=== PATIENT | female | born 1990 | race African-American/Black ===

== ENCOUNTER 2019-07-14 16:55 | Emergency (ER) | payer BC ==
[2019-07-14] MEDS ORDERED: Sodium Chloride 0.9% 10 ML Syringe FLUSH PRN (18:00)
--- NOTE | 2019-07-14 18:07 | EDM.PDOC ---
ED HPI GENERAL MEDICAL PROBLEM - General Chief Complaint: General Stated Complaint: DIZZY AND NAUSEOUS Time Seen by Provider: 07/14/19 17:43 Source of Information: Reports: Patient History Limitations: Reports: No Limitations - History of Present Illness INITIAL COMMENTS - FREE TEXT/NARRATIVE: Patient is a 29-year-old female who presents with complaints of headache, dizziness, and nausea for the last 8 days. Patient describes her dizziness as the room spinning. She states it is worse if she looks to the side quickly. States the symptoms are intermittent and are currently mild. Nausea worsens when the dizziness is present. She has had an episode similar to this last year and it resolved after a couple weeks. She has not had vomiting or diarrhea. She denies any respiratory symptoms, fever, or chills. She denies any vision changes. She has not taken any OTC medications for this. She denies the possibility of being and is currently on her menses. She has not had any ear pain or pressure. Denies any chronic medical conditions. Middle Frontal Forehead Pain Score (Numeric/FACES): 1 - Related Data Allergies Allergy/AdvReac Type Severity Reaction Status Date / Time No Known Allergies Allergy Verified 07/14/19 17:09 Home Meds: Home Meds Ibuprofen 200 mg PO PRN 07/14/19 [History] Meclizine [Antivert] 25 mg PO TID PRN #15 tab 07/14/19 [Rx] Past Medical History HEENT History: Reports: None Cardiovascular History: Reports: None Respiratory History: Reports: None Gastrointestinal History: Reports: None Genitourinary History: Reports: None [employer] History: Reports: None Musculoskeletal History: Reports: None Neurological History: Reports: None Psychiatric History: Reports: None Endocrine/Metabolic History: Reports: None Hematologic History: Reports: None Immunologic History: Reports: None Oncologic (Cancer) History: Reports: None Dermatologic History: Reports: None Social & Family History - Tobacco Use Smoking Status *Q: Never Smoker - Caffeine Use Caffeine Use: Reports: Coffee - Recreational Drug Use Recreational Drug Use: No ED ROS GENERAL - Review of Systems Review Of Systems: Comprehensive ROS is negative, except as noted in HPI. ED EXAM, GENERAL - Physical Exam Exam: See Below Exam Limited By: No Limitations General Appearance: Alert, WD/WN, No Apparent Distress Eye Exam: Bilateral Eye: PERRL Ears: Normal External Exam, Normal Canal, Hearing Grossly Normal, Normal TMs, Other (slight nystagmus with left hallpike mauever. ) Head: Atraumatic, Normocephalic Respiratory/Chest: No Respiratory Distress, Lungs Clear, Normal Breath Sounds, No Accessory Muscle Use, Chest Non-Tender Cardiovascular: Normal Peripheral Pulses, Regular Rate, Rhythm, No Edema, No Gallop, No JVD, No Murmur, No Rub Neurological: Alert, Oriented, No Motor/Sensory Deficits Course - Vital Signs Last Recorded V/S: Last Vital Signs Temp 99 F 07/14/19 17:02 Pulse 68 07/14/19 17:02 Resp 18 07/14/19 17:02 BP 120/73 07/14/19 17:02 Pulse Ox 100 07/14/19 17:02 Orthostatic Blood Pressure [ 134/86 Standing] Orthostatic Blood Pressure [ 120/73 Sitting] Orthostatic Blood Pressure [ 110/76 Supine] - Orders/Labs/Meds Orders: Active Orders 24 hr Category Date Time Status Orthostatic Vital Signs [RC] ASDIRECTED Care 07/14/19 17:42 Active Peripheral IV Care [RC] . DIRECTED Care 07/14/19 18:01 Active Head wo Cont [CT] Stat Exams 07/14/19 18:00 Taken Meclizine [Antivert] Med 07/14/19 19:11 Once 25 mg PO ONETIME ONE Sodium Chloride 0.9% [Normal Saline] 1,000 ml Med 07/14/19 18:15 Active IV ASDIRECTED Sodium Chloride 0.9% [Saline Flush] Med 07/14/19 18:00 Active 10 ml FLUSH ASDIRECTED PRN Peripheral IV Insertion Adult [OM.PC] Stat Oth 07/14/19 18:00 Ordered Medication Orders Sodium Chloride (Normal Saline) 1,000 mls @ 999 mls/hr IV ASDIRECTED KATHRIN Last Admin: 07/14/19 18:12 Dose: 999 mls/hr Sodium Chloride (Saline Flush) 10 ml FLUSH ASDIRECTED PRN PRN Reason: Keep Vein Open Labs: Laboratory Tests 07/14/19 07/14/19 Range/Units 18:04 18:04 WBC 5.44 (3.98-10.04) K/mm3 RBC 4.84 (3.98-5.22) M/mm3 Hgb 14.0 (11.2-15.7) gm/dl Hct 41.3 (34.1-44.9) % MCV 85.3 (79.4-94.8) fl MCH 28.9 (25.6-32.2) pg MCHC 33.9 (32.2-35.5) g/dl RDW Std Deviation 38.9 (36.4-46.3) fL Plt Count 357 (182-369) K/mm3 MPV 9.4 (9.4-12.3) fl Neut % (Auto) 33.9 L (34.0-71.1) % Lymph % (Auto) 52.9 H (19.3-51.7) % [place] % (Auto) 9.6 (4.7-12.5) % Eos % (Auto) 2.8 (0.7-5.8) Baso % (Auto) 0.6 (0.1-1.2) % Neut # (Auto) 1.85 (1.56-6.13) K/mm3 Lymph # (Auto) 2.88 (1.18-3.74) K/mm3 [place] # (Auto) 0.52 H (0.24-0.36) K/mm3 Eos # (Auto) 0.15 (0.04-0.36) K/mm3 Baso # (Auto) 0.03 (0.01-0.08) K/mm3 Sodium 140 (136-145) mEq/L Potassium 4.1 (3.5-5.1) mEq/L Chloride 103 (98-107) mEq/L Carbon Dioxide 24 (21-32) mEq/L Anion Gap 17.1 H (5-15) BUN 7 (7-18) mg/dL Creatinine 0.7 (0.55-1.02) mg/dL Est Cr Clr Drug Dosing 85.18 mL/min Estimated GFR (MDRD) > 60 (>60) mL/min BUN/Creatinine Ratio 10.0 L (14-18) Glucose 86 (74-106) mg/dL Calcium 8.7 (8.5-10.1) mg/dL Total Bilirubin 0.2 (0.2-1.0) mg/dL AST 15 (15-37) U/L ALT 21 (14-59) U/L Alkaline Phosphatase 69 (46-116) U/L Total Protein 7.7 (6.4-8.2) g/dl Albumin 3.8 (3.4-5.0) g/dl Globulin 3.9 gm/dL Albumin/Globulin Ratio 1.0 (1-2) Meds: Medications Generic Name Dose Route Start Last Admin Trade Name Freq PRN Reason Stop Dose Admin Sodium Chloride 1,000 mls @ 999 mls/hr 07/14/19 18:15 07/14/19 18:12 Normal Saline IV 999 mls/hr ASDIRECTED KATHRIN Administration Sodium Chloride 10 ml 07/14/19 18:00 Saline Flush FLUSH ASDIRECTED PRN Keep Vein Open - Re-Assessments/Exams Free Text/Narrative Re-Assessment/Exam: On exam, patient does have mild nystagmus with a left lateral head tilt on the Hallpike maneuver. She verbalized that this did worsen her symptoms slightly. Symptoms improved after she closed her eyes. Her presentation is suspicious for vertigo. She does not have any fullness or pain in her ears. We will complete a CT of the head as well as basic blood work. She denies any for any pain or nausea medications at this time. States she is not currently nauseous and her headache is mild. 07/14/19 19:13 Hematology was grossly unremarkable with the exception of a slightly elevated anion gap at 17.1. CT of the head showed a 1.8 x 1.1 x 2.4 cm arachnoid cyst as well as a downward displacement of the pituitary gland compared to a defect of the diaphragmatic sella. There were no acute findings on the CT of the head. Discussed these results with the patient. I will give her a dose of meclizine now and then also send a prescription for this. Recommend that she try this over the weekend if she is still having symptoms early next week recommend that she follow-up in the clinic for possible referral to PT or audiology. She is in agreement with this plan. She requested a note for work. I will write a note for her to return on . Discharge instructions as documented. Departure - Departure Time of Disposition: 19:13 Disposition: Home, Self-Care 01 Condition: Good Clinical Impression: Dizziness - Discharge Information *PRESCRIPTION DRUG MONITORING PROGRAM REVIEWED*: No *COPY OF PRESCRIPTION DRUG MONITORING REPORT IN PATIENT NEHEMIAS: No Prescriptions: Meclizine [Antivert] 25 mg PO TID PRN #15 tab PRN Reason: Dizziness Instructions: Dizziness, [id number] Referrals: PCP,Not In Area [Primary Care Provider] - Forms: ED Department Discharge, ED Return to Work/School Form Additional Instructions: You were seen in the emergency department today for dizziness, nausea, and headache. Your work-up included blood work as well as a CT scan of your head. CT scan of your head showed a small arachnoid cyst but no acute abnormalities were found. Your blood work was found to be overall normal, however you were slightly dehydrated. While in the ER you received a liter of IV fluids. Your symptoms are consistent with vertigo. You have been started on meclizine to help with the dizziness. Take this medication as prescribed. He did receive a dose of this in the emergency department. Recommend that you rest and increase your fluid intake over the next few days. If you are not having improvement in your symptoms by early next week, I recommend that you follow-up in the clinic to discuss further treatment options for vertigo. Return to the ER as needed. Sepsis Event Note - Evaluation Sepsis Screening Result: No Definite Risk - Focused Exam Vital Signs: Vital Signs Temp Pulse Resp BP Pulse Ox 07/14/19 17:02 99 F 68 18 120/73 100 Date Exam was Performed: 07/14/19 Time Exam was Performed: 19:11 - My Orders Last 24 Hours: My Active Orders 07/14/19 17:42 Orthostatic Vital Signs [RC] ASDIRECTED 07/14/19 18:00 Head wo Cont [CT] Stat Sodium Chloride 0.9% [Saline Flush] 10 ml FLUSH ASDIRECTED PRN Peripheral IV Insertion Adult [OM.PC] Stat 07/14/19 18:01 Peripheral IV Care [RC] . DIRECTED 07/14/19 18:15 Sodium Chloride 0.9% [Normal Saline] 1,000 ml IV ASDIRECTED 07/14/19 19:11 Meclizine [Antivert] 25 mg PO ONETIME ONE - Assessment/Plan Last 24 Hours: My Active Orders 07/14/19 17:42 Orthostatic Vital Signs [RC] ASDIRECTED 07/14/19 18:00 Head wo Cont [CT] Stat Sodium Chloride 0.9% [Saline Flush] 10 ml FLUSH ASDIRECTED PRN Peripheral IV Insertion Adult [OM.PC] Stat 07/14/19 18:01 Peripheral IV Care [RC] . DIRECTED 07/14/19 18:15 Sodium Chloride 0.9% [Normal Saline] 1,000 ml IV ASDIRECTED 07/14/19 19:11 Meclizine [Antivert] 25 mg PO ONETIME ONE
[2019-07-14] MEDS ORDERED: Sodium Chloride 0.9% 1,000 ML IV SCH (18:15)
--- NOTE | 2019-07-15 10:28 | CT ---
Head CT Technique: Multiple axial sections through the brain were obtained. Intravenous contrast was not utilized. Comparison: No prior intracranial imaging is available. Findings: Ventricles along with basal cisterns and sulci over the convexities are within normal limits for the patient's age. CSF structure is seen along the anterior left frontal lobe along the skull base and most likely represents an arachnoid cyst measuring approximately 2.3 cm in size. No abnormal parenchymal densities are otherwise seen. No evidence of intracranial hemorrhage. No midline shift or mass-effect is seen. So-called empty sella is present. Bone window settings were reviewed. Visualized mastoid sinuses and visualized paranasal sinuses show nothing acute. No acute calvarial abnormality is identified. Impression: 1. So-called empty sella which I feel is a normal variant if patient has no symptoms of hypopituitarism. 2. Arachnoid cyst within the inferior left frontal lobe which is felt to be nonacute. 3. No acute intracranial abnormality is identified. Diagnostic code #2 This report was dictated in MDT I agree with preliminary report from [facility], finalized on 07/14/19, 7:49 PM Central Daylight Time
== END 2019-07-14 19:23 | disposition home or self-care (01) ==
LOC: JD.ED 16:55
DX: R42 Dizziness and giddiness (principal)
CPT/HCPCS: 36415; 70450; 80053; 85025; 96360; 99284; A9270; J7030; 99283